=== PATIENT | female | born 1985 | race Caucasian/White ===

== ENCOUNTER 2021-06-22 18:45 | Observation (INO) | payer MEDICAID ==
[~2021-06-22] VITALS: Ht 162.6 cm; Wt 74.8 kg
[2021-06-22] MEDS ORDERED: PREN-176 PO (19:58)
[2021-06-22] MEDS ORDERED: FERR-71 PO (19:58)
[2021-06-22] MEDS: LACTATED RINGERS 1,000 ML IV SCH ×2 (20:57→22:40)
[2021-06-22 21:07] LABS: CLARITY URINE CLEAR (CLEAR); COLOR URINE YELLOW (YELLOW); KETONES URINE 2+ (NEGATIVE); LEUKOCYTE ESTERASE URINE NEGATIVE (NEGATIVE); NITRITE URINE NEGATIVE (NEGATIVE); OCCULT BLOOD URINE NEGATIVE (NEGATIVE); PROTEIN URINE NEGATIVE (NEGATIVE); SPECIFIC GRAVITY URINE 1.007 (1.005-1.030); UROBILINOGEN URINE 0.2 E.U./dL (0.2-1.0)
[2021-06-23] MEDS: LACTATED RINGERS 1,000 ML IV SCH (03:18)
[2021-06-23] MEDS ORDERED: DEXT 5%/LR + PITOCIN 20UNITS/L 1,000 ML IV SCH (09:30)
[2021-06-23] MEDS ORDERED: LACTATED RINGERS 1,000 ML IV SCH (09:30)
[2021-06-23] MEDS ORDERED: METHYLERGONOVINE MALEATE 0.2 MG/ML IM PRN (09:30)
== END 2021-06-23 12:05 | disposition home or self-care (01) ==
LOC: 8EST NSY 18:45 → 8 EST LDRP 19:21
PROVIDERS: ADMIT Obstetrics & Gynecology; ATTEND Obstetrics & Gynecology
DX: O26.893 Other specified pregnancy related conditions, third trimester (principal); R10.30 Lower abdominal pain, unspecified; O30.003 Twin pregnancy, unspecified number of placenta and unspecified number of amniotic sacs, third trimester; O62.9 Abnormality of forces of labor, unspecified; O09.523 Supervision of elderly multigravida, third trimester; Z3A.36 36 weeks gestation of pregnancy
CPT/HCPCS: 59025; 81003; 96360; 96361; G0378; 99281

== ENCOUNTER 2021-07-12 07:22 | Inpatient (IN) | payer MEDICAID ==
[~2021-07-12] VITALS: Ht 155 cm; Wt 75.7 kg
[~2021-07-12 07:22] MED LIST: FERR-71 PO; PREN-176 PO
[2021-07-12] MEDS ORDERED: DEXT 5%/LR + PITOCIN 20UNITS/L 1,000 ML IV SCH ×2 (09:45→16:00)
[2021-07-12] MEDS ORDERED: CARBOPROST TROMETHAMINE 250 MCG/ML AMPUL IM PRN (09:45)
[2021-07-12] MEDS ORDERED: NALOXONE HCL 0.4 MG/ML 1ML VIAL IM PRN (09:45)
[2021-07-12] MEDS ORDERED: METHYLERGONOVINE MALEATE 0.2 MG/ML IM PRN (09:45)
[2021-07-12] MEDS ORDERED: MISOPROSTOL 100MCG TABLET VG PRN (09:45)
[2021-07-12] MEDS: LACTATED RINGERS 1,000 ML IV SCH (10:50)
[2021-07-12] MEDS ORDERED: CITRIC ACID/SODIUM CITRATE SOLN 30ML UDC PO NR (11:00)
[2021-07-12 11:25] LABS: BASOPHILS % 0.6 % (0.0-2.0); EOSINOPHILS % 7.5 % (0.0-5.0); HEMATOCRIT. 32.7 % (36.0-48.0); HEMOGLOBIN. 10.3 g/dL (12.0-16.0); MEAN CORPUSCULAR HEMOGLOBIN 25.3 pg (28.0-32.0); MEAN CORPUSCULAR VOLUME 80.5 fL (81.0-99.0); MONOCYTES % 5.2 % (2.0-8.0); NEUTROPHILS % 66.7 % (40.0-76.0); PLATELET 261 x1000/uL (130-400); RED BLOOD CELL COUNT 4.07 mill/uL (4.2-5.4); RED CELL DISTRIBUTION WIDTH 18.2 % (11.6-14.6)
[2021-07-12 11:27] LABS: CLARITY URINE CLEAR (CLEAR); COLOR URINE DARK YELLOW (YELLOW); KETONES URINE NEGATIVE (NEGATIVE); LEUKOCYTE ESTERASE URINE TRACE (NEGATIVE); NITRITE URINE NEGATIVE (NEGATIVE); OCCULT BLOOD URINE NEGATIVE (NEGATIVE); PROTEIN URINE NEGATIVE (NEGATIVE); SPECIFIC GRAVITY URINE 1.017 (1.005-1.030)
[2021-07-12 11:37] LABS: INR 0.9; PARTIAL THROMBOPLASTIN TIME 27.9 sec (23.4-31.0); PROTHROMBIN TIME 9.5 sec (9.6-11.0)
[2021-07-12 11:47] LABS: *BENZODIAZEPINES SCREEN URINE NEGATIVE (NEGATIVE); *COCAINE SCREEN URINE NEGATIVE (NEGATIVE); METHADONE URINE SCREEN NEGATIVE (NEGATIVE)
[2021-07-12 11:48] LABS: *BARBITURATES SCREEN URINE NEGATIVE (NEGATIVE); CANNABINOID URINE SCREEN NEGATIVE (NEGATIVE); OPIATES URINE SCREEN NEGATIVE (NEGATIVE); PHENCYCLIDINE URINE SCREEN NEGATIVE (NEGATIVE)
[2021-07-12 11:49] LABS: *AMPHETAMINES SCREEN URINE NEGATIVE (NEGATIVE)
[2021-07-12] MEDS ORDERED: OXYTOCIN 10 UNITS/ML 1ML ONE (12:28)
[2021-07-12] MEDS ORDERED: DIPHENHYDRAMINE 50MG/ML VIAL ONE (12:28)
[2021-07-12] MEDS ORDERED: CEFAZOLIN SODIUM 1000MG/VIAL ONE (12:28)
[2021-07-12] MEDS ORDERED: ONDANSETRON HCL 4MG/2ML INJ ONE (12:28)
[2021-07-12] MEDS ORDERED: EPHEDRINE SULFATE 50MG/ML VIAL ONE (12:28)
[2021-07-12] MEDS ORDERED: MORPHINE SULFATE/PF 1MG/ML 10ML AMP ONE (12:28)
[2021-07-12] MEDS ORDERED: FENTANYL CITRATE/PF 50MCG/ML 2ML VIAL ONE (12:28)
[2021-07-12] MEDS ORDERED: PHENYLEPHRINE HCL 10 MG/ML 1ML (IV VIAL) IV ONE (12:28)
[2021-07-12] MEDS ORDERED: KETOROLAC 60MG/2ML VIAL IM ONE (14:21)
[2021-07-12] MEDS ORDERED: BUTORPHANOL TARTRATE 2 MG/ML VIAL IV PRN (14:30)
[2021-07-12] MEDS ORDERED: NALOXONE HCL 0.4 MG/ML 1ML VIAL IV PRN (14:30)
[2021-07-12] MEDS ORDERED: IBUPROFEN 400MG TABLET PO PRN (15:45)
[2021-07-12] MEDS ORDERED: ONDANSETRON HCL 4MG/2ML INJ IV PRN (15:45)
[2021-07-12] MEDS ORDERED: BISACODYL 10MG SUPP PR PRN (15:45)
[2021-07-12] MEDS ORDERED: RHO(D) IMMUNE GLOBULIN 300 MCG/SYR IM PRN (15:45)
[2021-07-12] MEDS ORDERED: HYDROCODONE/ACETAMINOPHEN 5/325MG TABLET PO PRN (15:45)
[2021-07-12] MEDS ORDERED: LANOLIN OINT 7GM TUBE TOP PRN (15:45)
[2021-07-12] MEDS ORDERED: HEMORRHOIDAL SUPP PR PRN (15:45)
[2021-07-12] MEDS ORDERED: DIPHENHYDRAMINE 25MG CAPSULE PO PRN (15:45)
[2021-07-12] MEDS: MAGNESIUM/ALUMINUM HYDROXIDE/SIMETHICONE 30ML UDC PO SCH (17:00)
[2021-07-12] MEDS ORDERED: INFLUENZA VACCINE 05/PF 0.5 ML SYRINGE IM ONE (18:15)
[2021-07-12 20:00] VITALS: BP 118/59
[2021-07-12] MEDS: DIPHENHYDRAMINE 50MG/ML VIAL IV PRN (20:50)
[2021-07-12] MEDS: KETOROLAC 30MG/ML VIAL IV SCH (21:05)
[2021-07-13] VITALS: BP 114/64
[2021-07-13] MEDS ORDERED: KETOROLAC 30MG/ML VIAL IV SCH (04:00)
[2021-07-13 04:15] VITALS: BP 109/62
[2021-07-13] MEDS: KETOROLAC 30MG/ML VIAL IV SCH (04:15)
[2021-07-13] MEDS: DIPHENHYDRAMINE 50MG/ML VIAL IV PRN ×2 (04:24→10:27)
[2021-07-13 06:57] LABS: BASOPHILS % 0.2 % (0.0-2.0); EOSINOPHILS % 4.2 % (0.0-5.0); HEMATOCRIT. 32.2 % (36.0-48.0); HEMOGLOBIN. 10.2 g/dL (12.0-16.0); LYMPHOCYTES % 12.7 % (20.0-50.0); MEAN CORPUSCULAR HEMOGLOBIN 25.5 pg (28.0-32.0); MEAN CORPUSCULAR VOLUME 80.1 fL (81.0-99.0); MEAN PLATELET VOLUME 8.9 fl (7.4-10.4); MONOCYTES % 4.4 % (2.0-8.0); NEUTROPHILS % 78.5 % (40.0-76.0); PLATELET 263 x1000/uL (130-400); RED BLOOD CELL COUNT 4.01 mill/uL (4.2-5.4); RED CELL DISTRIBUTION WIDTH 18.1 % (11.6-14.6)
[2021-07-13 07:30] VITALS: BP 116/64
[2021-07-13] MEDS: FERROUS SULFATE 325MG TABLET PO SCH ×2 (10:20→14:40)
[2021-07-13] MEDS: PRENATAL VIT/FE FUMARATE/FA TABLET PO SCH (10:20)
[2021-07-13] MEDS: SIMETHICONE 80MG TABLET CHEW PO SCH ×3 (10:21→21:49)
[2021-07-13 11:24] LABS: HEPATITIS B SURFACE ANTIGEN NEGATIVE
[2021-07-13] MEDS: MAGNESIUM/ALUMINUM HYDROXIDE/SIMETHICONE 30ML UDC PO SCH ×2 (14:41→21:48)
[2021-07-13] MEDS: LACTATED RINGERS 1,000 ML IV SCH (15:44)
[2021-07-13] MEDS: IBUPROFEN 800MG TABLET PO PRN (15:47)
[2021-07-13 16:32] VITALS: BP 113/63
[2021-07-13 20:00] VITALS: BP 120/63
[2021-07-13] MEDS ORDERED: MEASLES,MUMPS&RUBELLA VACCINE 1 VIAL SUBCUT ONE (20:00)
[2021-07-13] MEDS: DOCUSATE SODIUM 100MG CAPSULE PO SCH (21:49)
[2021-07-14 00:17] VITALS: BP 122/73
[2021-07-14] MEDS: IBUPROFEN 800MG TABLET PO PRN ×2 (03:49→14:30)
[2021-07-14 04:00] VITALS: BP 121/73
[2021-07-14] MEDS: FERROUS SULFATE 325MG TABLET PO SCH ×2 (07:30→14:29)
[2021-07-14 08:30] VITALS: BP 114/56
[2021-07-14] MEDS: PRENATAL VIT/FE FUMARATE/FA TABLET PO SCH (14:29)
[2021-07-14] MEDS: SIMETHICONE 80MG TABLET CHEW PO SCH ×2 (14:30→20:38)
[2021-07-14 16:05] VITALS: BP 113/65
[2021-07-14 20:00] VITALS: BP 99/51
[2021-07-14] MEDS: DOCUSATE SODIUM 100MG CAPSULE PO SCH (20:38)
[2021-07-15 00:34] VITALS: BP 102/62
[2021-07-15] MEDS ORDERED: IBUP-2030 PO (02:45)
[2021-07-15] MEDS: MAGNESIUM/ALUMINUM HYDROXIDE/SIMETHICONE 30ML UDC PO SCH (07:30)
[2021-07-15] MEDS: SIMETHICONE 80MG TABLET CHEW PO SCH (07:57)
[2021-07-15 08:05] VITALS: BP 124/69
[2021-07-15 08:06] VITALS: BP 124/69
[2021-07-15] MEDS: PRENATAL VIT/FE FUMARATE/FA TABLET PO SCH (08:58)
[2021-07-15] MEDS: IBUPROFEN 800MG TABLET PO PRN (09:12)
== END 2021-07-15 10:55 | disposition home or self-care (01) | DRG 539 ==
LOC: 8 EST LDRP 07:22 → OBSVTOIN 07:22 → 8EST 07-13 00:23
PROVIDERS: ADMIT Obstetrics & Gynecology; ATTEND Obstetrics & Gynecology
PROC: 10D00Z1 Extraction of Products of Conception, Low, Open Approach (ICD-10-PCS; principal; 2021-07-12)
PROC: 0UB70ZZ Excision of Bilateral Fallopian Tubes, Open Approach (ICD-10-PCS; 2021-07-12)
DX: O34.211 Maternal care for low transverse scar from previous cesarean delivery (principal); D64.9 Anemia, unspecified; Z20.822 Contact with and (suspected) exposure to COVID-19; O90.81 Anemia of the puerperium; O75.89 Other specified complications of labor and delivery; R33.9 Retention of urine, unspecified; Z37.0 Single live birth; Z30.2 Encounter for sterilization; Z3A.39 39 weeks gestation of pregnancy
CPT/HCPCS: 36415; 80305; 81003; 85025; 86592; 86762; 86850; 86900; 87340; 87426; 88302; 88307; 90686; 90707; 99281; G0378; J0690; J1200; J1885; J2274; J2370; J2405; J2590; J3010; J3490; A4315